=== PATIENT | male | born 1955 | race Caucasian/White ===

== ENCOUNTER → 2019-02-21 | Outpatient (CLI) | payer BC ==
--- NOTE | 2019-02-21 18:00 | ECHOF ---
Referral Reason:R60.0 Localized edema MEASUREMENTS -------- HEIGHT: 175.3 cm WEIGHT: 115.7 kg BP: 134/75 RVIDd: 3.7 cm (< 3.3) IVSd: 1.2 cm (0.6 - 1.1) LVIDd: 4.9 cm (3.9 - 5.3) LVPWd: 1.1 cm (0.6 - 1.1) IVSs: 1.7 cm LVIDs: 3.5 cm LVPWs: 1.7 cm LA Diam: 4.0 cm (2.7 - 3.8) LAESV Index (A-L): 26.73 ml/m Ao Diam: 3.5 cm (2.0 - 3.7) AV Cusp: 2.2 cm (1.5 - 2.6) MV EXCURSION: 17.701 mm (> 18.000) MV EF SLOPE: 62 mm/s (70 - 150) EPSS: 0.8 cm MV E Gilbert: 0.86 m/s MV DecT: 259 ms MV A Gilbert: 1.01 m/s MV E/A Ratio: 0.85 RAP: 5.00 mmHg RVSP: 36.08 mmHg TAPSE: 15.18 mm FINDINGS -------- Sinus rhythm. This was a technically adequate study. The left ventricular size is normal. There is borderline concentric left ventricular hypertrophy. Overall left ventricular systolic function is normal with, an EF between 55 - 60 %. The right ventricle is mild to moderately enlarged. Normal LA size by volume 22+/-6 ml/m2. The right atrial size is normal. Interatrial and interventricular septum intact. The aortic valve is trileaflet, and appears structurally normal. No aortic stenosis or regurgitation. The mitral valve is normal. There is trace mitral regurgitation. The tricuspid valve appears structurally normal. Mild tricuspid regurgitation present. There is m ild pulmonary hypertension. Trace/mild (physiologic) pulmonic regurgitation. The aortic root size is normal. IVC Not well visulized. There is no pericardial effusion. CONCLUSIONS -------- 1. Sinus rhythm. 2. This was a technically adequate study. 3. The left ventricular size is normal. 4. There is borderline concentric left ventricular hypertrophy. 5. Overall left ventricular systolic function is normal with, an EF between 55 - 60 %. 6. 7. The right ventricle is mild to moderately enlarged. 8. Normal LA size by volume 22+/-6 ml/m2. 9. The aortic valve is trileaflet, and appears structurally normal. No aortic stenosis or regurgitati on. 10. There is trace mitral regurgitation. 11. Mild tricuspid regurgitation present. 12. There is mild pulmonary hypertension. 13. Trace/mild (physiologic) pulmonic regurgitation. 14. The aortic root size is normal. 15. IVC Not well visulized. 16. There is no pericardial effusion. REMOTE MEDICAL CODER: Esperanza Barajas RDCS
== END | disposition home or self-care (01) ==
LOC: RADECHMAIN 16:19
PROVIDERS: ATTEND Family Medicine
DX: I07.1 Rheumatic tricuspid insufficiency (principal); I27.20 Pulmonary hypertension, unspecified
CPT/HCPCS: 93306

== ENCOUNTER → 2019-11-18 | Outpatient (CLI) | payer BC ==
--- NOTE | 2019-11-19 04:27 | US ---
EXAMINATION TYPE: US venous doppler duplex UE RT DATE OF EXAM: 11/18/2019 COMPARISON: NONE CLINICAL HISTORY: 64-year-old male R22.31 Swelling of Rt upper limb. Right arm swelling and redness. TECHNIQUE: Grayscale, color doppler, spectral doppler imaging performed of the deep veins of the upp er extremities. SIDE PERFORMED: Right FINDINGS: There is normal flow, compressibility and vascular waveforms. Right Arm: Negative for DVT IMPRESSION: No sonographic evidence for DVT within the right upper extremity.
== END | disposition home or self-care (01) ==
LOC: RADUSWWP 16:26
PROVIDERS: ATTEND Family Medicine
DX: R22.31 Localized swelling, mass and lump, right upper limb (principal)

== ENCOUNTER → 2021-08-05 | Outpatient (CLI) | payer BC, MEDICARE ==
--- NOTE | 2021-08-06 04:34 | MR ---
EXAMINATION TYPE: MR lumbar spine wo con DATE OF EXAM: 08/05/2021 COMPARISON: None HISTORY: LBP, radiates down right leg x 3 months. Multiplanar multiecho imaging of the lumbar spine without contrast. Lumbar vertebrae have normal alignment. There is degenerative disc space narrowing at L5-S1. There is a small posterior disc herniation at L5-S1. There is developmentally adequate spinal canal. No spina l stenosis. There is no lumbar paraspinal mass. There is some intermediate signal in the right-sided neural foramen at L5-S1. It is not clear if this is a lateral disc herniation or due to a mass. There is no compression fracture. There is no focal bone destruction. Sacroiliac joints are intact. IMPRESSION: There is a mass in the neural foramen of L5-S1 on the right side that could be a sequestered disc her niation or tumor mass. No focal bone destruction. There is small posterior central L5-S1 lumbar disc herniation.
== END | disposition home or self-care (01) ==
LOC: RADMRIMAIN 19:09
PROVIDERS: ATTEND Family Medicine
DX: M54.16 Radiculopathy, lumbar region (principal)
CPT/HCPCS: 72148

== ENCOUNTER → 2021-09-03 | Outpatient (CLI) | payer BC, MEDICARE ==
--- NOTE | 2021-09-03 10:20 | MR ---
EXAMINATION TYPE: MR shoulder RT wo con DATE OF EXAM: 09/03/2021 COMPARISON: None. HISTORY: Right shoulder pain since surgery in September 2020 TECHNIQUE: Multiplanar, multisequence imaging of the right shoulder is performed without contrast. FINDINGS: Rotator Cuff: Artifact from rotator cuff repair noted in the lateral aspect of the humeral head. Ther e is recurrent full-thickness retracted tear of the supraspinatus tendon to the level of the central acromion near the AC joint. The infraspinatus tendon remains intact. Subscapularis tendon is intact. Acromioclavicular Joint: Persistent severe narrowing and moderate to severe capsular hypertrophy with mild spurring. Distal acromion morphology unremarkable. Glenohumeral Joint: Moderate to severe narrowing superior glenohumeral joint with moderate joint effu stefany extending superiorly. High riding humeral head correlates with full-thickness rotator cuff tear. Labrum: The labrum appears grossly intact given limitation of non-arthrogram study. Biceps Tendon: The long head of biceps is in normal location within bicipital groove. There is abnorm al increased signal in the extracapsular portion. Intra-articular portion not well visualized but fel t intact. Bone marrow signal: Mild edematous change involving the lateral aspect of the acromion just above the humeral head. Other: No additional significant abnormality is appreciated. IMPRESSION: 1. Recurrent full-thickness retracted tear of the supraspinatus tendon. High running humeral head con sistent with underlying instability noted. 2. Moderate to severe degenerative changes as detailed above. 3. Tendinopathy and tearing of fibers of the long head of biceps tendon noted.
== END | disposition home or self-care (01) ==
LOC: RADMRIMAIN 09:01
PROVIDERS: ATTEND Family Medicine
DX: M75.101 Unspecified rotator cuff tear or rupture of right shoulder, not specified as traumatic (principal); M62.81 Muscle weakness (generalized)

== ENCOUNTER → 2022-07-05 | Outpatient (CLI) | payer BC, MEDICARE ==
--- NOTE | 2022-07-06 07:20 | US ---
EXAMINATION TYPE: US thyroid st tissue head/neck DATE OF EXAM: 07/05/2022 COMPARISON: 05/03/2016 CLINICAL HISTORY: E04.2 NONTOXIC MULTINODULAR GOITER. Thyroid nodules GLAND SIZE: Right Lobe: 5.5 x 2.4 x 2.3 cm Overall Parenchyma: heterogenous Left Lobe: 5.0 x 2.1 x 1.7 cm Overall Parenchyma: heterogeneous Isthmus Thickness: 0.3 cm NODULES RIGHT: # of nodules measured on right: 3 1. 1.0 X .7 x 1.0 cm, upper Prior size: 1.0 x .7 x .8 cm TIRADS Score: 2 TIRADS Category 2: Not Suspicious Composition: Mixed cystic and solid (1 point). Echogenicity: Hyperechoic or isoechoic (1 point). Shape: Wider than tall (0 points). Margin: Smooth (0 points). Echogenic foci: None or large comet-tail artifacts (0 points) Recommendation: No FNA 2. 1.0 X 0.7 x 0.9 cm, mid Prior size: 0.9 x 0.7 x 0.6 cm TIRADS Score: 2 TIRADS Category 2: Not Suspicious Composition: Mixed cystic and solid (1 point). Echogenicity: Hyperechoic or isoechoic (1 point). Shape: Wider than tall (0 points). Margin: Smooth (0 points). Echogenic foci: None or large comet-tail artifacts (0 points) Recommendation: No FNA LEFT: # of nodules measured on left: 1 1. 1.1 X 0.7 x 1.1 cm, mid Prior size: 0.9 x 0.7 x 0.7 cm TIRADS Score: 3 TIRADS Category 3: Mildly Suspicious Composition: Mixed cystic and solid (1 point). Echogenicity: Hypoechoic (2 points). Shape: Wider than tall (0 points). Margin: Smooth (0 points). Echogenic foci: None or large comet-tail artifacts (0 points) Recommendation: If >2.5cm: FNA; If >1.5cm: Follow up at 1,3,5 years ISTHMUS: # of nodules measured in the isthmus: 0 Bilateral neck scanned, no evidence of lymphadenopathy. IMPRESSION: Bilateral thyroid nodules that do not meet criteria for follow-up or tissue sampling.
== END | disposition home or self-care (01) ==
LOC: RADUSWWP 15:32
PROVIDERS: ATTEND Family Medicine
DX: E04.2 Nontoxic multinodular goiter (principal)
CPT/HCPCS: 76536

== ENCOUNTER → 2024-11-14 | Outpatient (CLI) | payer MEDICARE ==
--- NOTE | 2024-11-14 14:07 | US ---
EXAMINATION TYPE: US thyroid st tissue head/neck DATE OF EXAM: 11/14/2024 COMPARISON: 07/05/2022 CLINICAL INDICATION: Male, 69 years old with history of E04.1 NONTOXIC SINGLE THYROID NODULE; TECHNIQUE: Grayscale and color Doppler imaging of the thyroid gland. FINDINGS: GLAND SIZE: Right Lobe: 5.7 x 2.7 x 1.8 cm Overall Parenchyma: heterogeneous Left Lobe: 5.1 x 2.4 x 1.8 cm Overall Parenchyma: heterogeneous Isthmus Thickness: 0.4 cm NODULES RIGHT: # of nodules measured on right: 3 1. 1.1 X 0.8 x 1.0 cm, upper mid, Prior size: 0.9 x 1.0 x 0.7 cm TIRADS Score: 4 TIRADS Category 4: Composition: Solid or almost completely solid (2 points). Echogenicity: Hypoechoic (2 points). Shape: Wider than tall (0 points). Margin: Smooth (0 points). Echogenic foci: None or large comet-tail artifacts (0 points) Recommendation: If >1.5cm: FNA; If >1cm: Follow up at 1,2, 3,5 years 2. 1.4 X 1.0 x 1.3 cm, lower mid, Prior size: 0.9 x 1.0 x 0.7 cm TIRADS Score: 2 TIRADS Category 2: Composition: Mixed cystic and solid (1 point). Echogenicity: Hyperechoic or isoechoic (1 point). Shape: Wider than tall (0 points). Margin: Smooth (0 points). Echogenic foci: None or large comet-tail artifacts (0 points) Recommendation: No FNA 3. 1.0 X 0.8 x 1.1 cm, mid mid, Prior size: Not seen on prior TIRADS Score: 0 TIRADS Category 1: Benign Composition: Spongiform (0 points). Recommendation: No FNA LEFT: # of nodules measured on left: 1 1. 1.3 X 1.0 x 0.8 cm, lower lateral, mixed cystic and solid, very hypoechoic nodule, which is tall er than wide, with ill-defined margins, without echogenic foci. Prior size: 1.1 x 0.7 x 1.1 cm TIRADS Score: 5 TIRADS Category 4: Composition: Solid or almost completely solid (2 points). Echogenicity: Very hypoechoic (3 points). Shape: Wider than tall (0 points). Margin: Smooth (0 points). Echogenic foci: None or large comet-tail artifacts (0 points) Recommendation: If >1.5cm: FNA; If >1cm: Follow up at 1,2, 3,5 years ISTHMUS: # of nodules measured in the isthmus: 0 Bilateral neck scanned, no evidence of lymphadenopathy. IMPRESSION: Bilateral thyroid nodules that meet criteria for follow-up Highest TI-RADS level nodule reported: 2017 ACR TI-RADS LEVEL: TI-RADS 4 - Moderately Suspicious: Follow if > 1 cm, FNA if > 1.5 cm TI-RADS assessment score and recommendation for follow-up based on appropriate scoring and treatment protocols. TR1 Benign No FNA TR2 Not suspicious No FNA TR3: If nodule size is ? 2.5 cm, FNA is recommended. If nodule size is ? 1.5 cm, follow-up imaging at 1, 3, and 5 years is recommended. TR4: If nodule size is ? 1.5 cm, FNA is recommended. If nodule size is ? 1.0 cm, follow-up imaging at 1, 2, 3, and 5 years is recommended. TR5: If nodule size is ? 1.0 cm, FNA is recommended. If nodule size is ? 0.5 cm, annual follow-up for up to 5 years is recommended. TR 1 thyroid nodules have a 0.3 % risk of malignancy. TR 2 thyroid nodules have a 1.5 % risk of malignancy. TR 3 thyroid nodules have a 4.8 % risk of malignancy. TR 4 thyroid nodules have a 9.1 % risk of malignancy. TR 5 thyroid nodules have a 35 % risk of malignancy. [email or web address] [facility], , 11/14/2024 2:04 PM
== END | disposition home or self-care (01) ==
LOC: RADUSWWP 13:29
PROVIDERS: ATTEND Family Medicine
DX: E04.2 Nontoxic multinodular goiter (principal)
CPT/HCPCS: 76536

== ENCOUNTER 2024-12-03 12:35 | Inpatient (IN) | payer MEDICARE ==
[2024-12-03 15:14] LABS: Glucose,Whole Blood 141 mg/dL (70-110)
[2024-12-03] MEDS: IV FLUID CONTINUATION 1,000 ML IV ONE (16:55)
[2024-12-03] MEDS: fentaNYL (PF) 50 MCG/1 ML VIAL IVP ONE (17:23)
[2024-12-03] MEDS: LIDOCAINE 1% INJ 10MG/ML (20 ML MDV) SQ ONE (17:23)
[2024-12-03] MEDS: MIDAZOLAM 2 MG/2 ML VIAL IVP ONE (17:24)
[2024-12-03] MEDS: VERAPAMIL 2.5 MG/ML 4 ML VIAL INTRAARTER ONE (17:24)
[2024-12-03] MEDS: SODIUM CHLORIDE 0.9% 1,000 ML IV ONE (17:25)
[2024-12-03] MEDS: HEPARIN SODIUM,PORCINE 10,000 UNIT in SODIUM CHLORIDE 0.9% 1,000 ML IRRIGATION ONE (17:26)
[2024-12-03] MEDS: HEPARIN SODIUM,PORCINE (1 ML) 2,500 UNIT in SODIUM CHLORIDE 0.9% 250 ML IRRIGATION ONE (17:26)
[2024-12-03] MEDS: HEPARIN SODIUM 1,000 UN/ML (10ML VL) IVP ONE ×3 (17:35→18:44)
[2024-12-03] MEDS: PRASUGREL 10 MG TAB PO ONE (17:43)
[2024-12-03] MEDS: IOPAMIDOL-300 100ML BTL INJ ONE ×2 (18:01→18:32)
[2024-12-03] MEDS ORDERED: ATROPINE SULFATE 0.1 MG/ML 10ML SYRINGE IV PRN (18:51)
[2024-12-03] MEDS ORDERED: NITROGLYCERIN SL TABS 0.4 MG TAB SUBLINGUAL PRN (18:51)
[2024-12-03] MEDS ORDERED: RX INFO: IV CONTRAST WAS GIVEN 1 EACH MISC MISCELLANE PRN (18:51)
[2024-12-03] MEDS ORDERED: MAG HYDROX/AL HYDROX/SIMETH 30 ML CUP PO PRN (18:51)
--- NOTE | 2024-12-03 19:03 | P.CARDCATH ---
Date of Procedure: 12/03/24 Description of Procedure: Cardiac Catheterization: The patient is a 69-year-old male with a history of hypertension hyperlipidemia who presented to [facility] with symptoms of chest discomfort going on for the last few days and no significant EKG changes but with significant elevation of his high-sensitivity troponin. Recommendations were made regarding cardiac catheterization, the risks and the complications were discussed with the patient who is in full understanding and agreement. Procedure Description: Patient was brought to manager lab in fasting semi-sedated state after receiving Fentanyl and Benadryl achieiving moderate conscious sedated state. Using Xylocaine Anesthesia and modified Seldinger technique, a 6-St Lucian sheath was introduced in the right radial artery . Subsequently, selective coronary angiography was performed using a 5-St Lucian 3.5 bend Lin catheter. Multiple views of the coronary artery including hemiaxial views were obtained. The 5 [place] Lucian pigtail catheter was used to cross the aortic valve and LVEDP was calculated. PCI: After removing the catheters a 6 [place] Lucian CLS 3.5 guiding catheter was introduced into the system and after cannulating the left main a super cross microcatheter with a 0.014 whisper J-wire was advanced to the distal LAD, the wire was exchanged to a 0.014 BMW J-wire and subsequently the microcatheter was removed. Subsequently at 2.5 x 12 mm trek balloon was advanced and multiple inflation at 8 sylvain was done. After removing the balloon a Trips n Salsa eye IVUS catheter was introduced and imaging was performed and revealed diffusely diseased mid LAD. The proximal vessel measured 4.5 mm in diameter. There was moderate calcification in the midsegment. After removing the IVUS a 4.0 x 28 mm Xience mehdi point stent was deployed at 16 sylvain. Subsequently a 2.5 x 38 mm Xience mehdi point was deployed in the mid segment at 16 sylvain and after removing the balloon a 3.0 x 18 mm Xience mehdi point stent was deployed in the segment between the first 2 stents. After removing the balloon repeat IVUS imaging was performed and subsequently a 3.0 x 20 mm NC trek balloon was advanced and inflation in the distal stents were performed and after that a 3.5 x 20 mm NC trek balloon was advanced and inflation in the mid segments of the stents were done and at the end of 4.5 x 15 mm NC trek balloon was advanced and inflations in the proximal stent were done. After the last inflation the wire was removed and images were obtained and revealed stable successful stenting. Following that, catheter and sheath were removed. Hemostasis was obtained with deployment of vascular band . There was no immediate complication. Patient was returned to room in stable condition. Of note, the patient received a total of 8500 units of intravenous heparin as well as intra-arterial verapamil. He received an oral loading dose of prasugrel, his ACT was monitored. He had no EKG changes or chest discomfort with the inflations. Findings: Fluoroscopy: Calcification of the LAD was noted. Left main: This is a short size vessel, bifurcating into LAD and left circumflex, left main has no obstructive disease LAD: This vessel is totally occluded proximally with no antegrade flow Left circumflex: This is a large nondominant vessel giving rise to a large obtuse marginal branch the 2nd and 3rd obtuse marginal branch are small in caliber. The proximal left circumflex has 10 to 20% plaque as well has intimal disease in the OM with no high-grade stenosis. RCA: This is a large dominant vessel, tortuous in the midsegment. It has a 60 to 70% stenosis in the midsegment with intimal disease distally and no high- grade stenosis. The PDA is large in caliber and has no evidence of high-grade stenosis. There is collaterals through the septal position clerk toward the proximal LAD. Left Ventriculogram: Not performed Hemodynamics: There was no gradient across aortic valve, LVEDP was 24-28 mmHg Conclusion: 1. Acutely occluded proximal LAD 2. Moderate significant disease in the mid RCA 3. Mild disease in the left circumflex 4. Elevated LVEDP 5. Successful stenting of the proximal and mid LAD with reduction of stenosis from 100% to less than 5% with diffuse pattern of disease in the mid LAD after the acute occlusion with KSENIA-3 flow at the end of procedure with IVUS imaging. The patient second diagonal branch was small in caliber and diffusely diseased. Recommendations: The patient will continue on aspirin and prasugrel without any interruption for at least 1 year in addition to aggressive coronary risks modification, attempting to maintain LDL below 70 mg/dL. Depending on his progress the decision will be made at a later time to evaluate the right coronary artery territory to see if intervention is needed. The findings and the recommendations were discussed with the patient and the family and they were in full understanding and agreement. Duration of sedation is 71 minutes.
[2024-12-03 19:22] LABS: Glucose,Whole Blood 103 mg/dL (70-110)
[2024-12-03] MEDS: SODIUM CHLORIDE 0.9% 1,000 ML in EMPTY BAG 1 BAG IV SCH (20:31)
[2024-12-03] MEDS: METOPROLOL TARTRATE 12.5 MG TAB PO SCH (20:32)
[2024-12-03] MEDS: ATORVASTATIN 80 MG TAB PO SCH (20:32)
[2024-12-03] MEDS: ZOLPIDEM 5 MG TAB PO PRN (23:20)
[2024-12-04 06:44] LABS: African American GFR (CKD) >90 (>60 ml/min/1.73 sqM); Anion Gap 8 mmol/L; Blood Urea Nitrogen 17 mg/dL (9-20); Calcium 8.3 mg/dL (8.4-10.2); Carbon Dioxide 23 mmol/L (22-30); Chloride 107 mmol/L (98-107); Glucose 125 mg/dL (74-99); Non-African American GFR(CKD) >90 (>60 ml/min/1.73 sqM); Sodium 138 mmol/L (137-145)
[2024-12-04 07:10] LABS: Potassium 2.7 mmol/L (3.5-5.1)
[2024-12-04] MEDS ORDERED: Potassium Replacement Protocol 1 EACH MISC MISCELLANE PRN ×2 (07:21→18:27)
--- NOTE | 2024-12-04 07:34 | P.PN ---
Subjective Progress Note Date: 12/04/24 The patient was seen and evaluated this morning. He is asymptomatic. He is hemodynamically stable beside the pressure being on the low side with some reading below 90 mmHg systolic. I am going to decrease the dose of Aldactone to 12.5 mg p.o. daily and continue the rest of the current medical regimen i ncluding dual antiplatelet therapy along with high intensity statin along with beta-veronika and also ARB. The echo is pending. The physical examination is remarkable for regular rhythm with clear breathing sounds bilaterally and no edema was noted in the lower extremities Assessment Acute non-ST elevation myocardial infarction CAD status post PCI of the LAD Electrolytes imbalance with hypokalemia Multiple comorbid conditions Plan Continue the current medical regimen Decrease the dose of Aldactone Waiting for the echocardiogram Possible discharge out of the ICU in the next 12 to 24 hours Objective - Vital Signs Vital signs: Vital Signs Temp 98.4 F 12/04/24 04:00 Pulse 68 12/04/24 07:00 Resp 10 L 12/04/24 07:00 BP 78/53 12/04/24 07:00 Pulse Ox 96 12/04/24 07:00 FiO2 Intake & Output 12/03/24 12/04/24 12/04/24 18:59 06:59 18:59 Intake Total 500 900 540 Output Total 800 0 Balance 500 100 540 Weight 99.79 kg 93.7 kg Intake: IV 500 900 Sodium Chloride 0.9% 1, 900 000 ml In Empty Bag 1 bag @ 1 ML/KG/HR 99.79 mls/ hr IV .Q10H2M [facility] Rx#: [id number] Oral 540 Output: Urine 800 0 Other: Voiding Method Urinal - Labs CBC & Chem 7: 12/04/24 05:34 Labs: Abnormal Lab Results - Last 24 Hours (Table) 12/03/24 12/04/24 Range/Units 15:02 05:34 Potassium 2.7 L* (3.5-5.1) mmol/L Creatinine 0.60 L (0.66-1.25) mg/dL Glucose 125 H (74-99) mg/dL POC Glucose (mg/dL) 141 H (70-110) mg/dL Calcium 8.3 L (8.4-10.2) mg/dL
[2024-12-04] MEDS ORDERED: SPIRONOLACTONE 25 MG TAB PO SCH (09:00)
[2024-12-04] MEDS: DAPAGLIFLOZIN PROPANEDIOL 10 MG TABLET PO SCH (09:05)
[2024-12-04] MEDS: POTASSIUM CHLORIDE ER 20 MEQ TAB.ER PO SCH ×2 (09:05→18:33)
[2024-12-04] MEDS: ASPIRIN 81 MG PO SCH (09:05)
[2024-12-04] MEDS: CHOLECALCIFEROL 25 MCG (1000 IU) TABLET PO SCH (09:05)
[2024-12-04] MEDS: PRASUGREL 10 MG TAB PO SCH (09:06)
--- NOTE | 2024-12-04 11:30 | CA ---
Transthoracic Echo Report Name: David Mar Age: 69 Gender: M : 1955 Exam Date: 12/04/2024 07:48 Exam Location: [place] [facility] Ht (in): 70 Wt (lb): 219 Ordering Physician: Diandra Richardson MD ([id number]) Attending/Referring Phys: Used Equipment Sales Representative Esperanza Barajas RDCS Procedure CPT: Indications: GA Cardiac Hx: Technical Quality: Fair Contrast 1: Total Dose (mL): Contrast 2: Total Dose (mL): MEASUREMENTS (Male / Female) Normal Values 2D ECHO LV Diastolic Diameter PLAX 4.6 cm 4.2 - 5.9 / 3.9 - 5.3 cm LV Systolic Diameter PLAX 3.9 cm IVS Diastolic Thickness 1.5 cm 0.6 - 1.0 / 0.6 - 0.9 cm LVPW Diastolic Thickness 1.3 cm 0.6 - 1.0 / 0.6 - 0.9 cm LV Relative Wall Thickness 0.6 RV Internal Dim ED PLAX 3.7 cm LA Systolic Diameter LX 3.9 cm 3.0 - 4.0 / 2.7 - 3.8 cm LV Diastolic Volume MOD BP 145.1 cm??? 67 - 155 / 56 - 104 cm??? LV Systolic Volume MOD BP 96.9 cm??? 22 - 58 / 19 - 49 cm??? LV Ejection Fraction MOD BP 33.2 % >= 55 % LV Cardiac Index MOD BP 1848.4 cm???/min???m??? LV Diastolic Volume MOD 4C 128.6 cm??? LV Systolic Volume MOD 4C 79.4 cm??? LV Ejection Fraction MOD 4C 38.2 % LV Cardiac Index MOD 4C 1883.1 cm???/min???m??? LV Diastolic Length 4C 8.8 cm LV Systolic Length 4C 7.7 cm LV Diastolic Volume MOD 2C 132.1 cm??? LV Systolic Volume MOD 2C 84.4 cm??? LV Ejection Fraction MOD 2C 36.1 % LV Cardiac Index MOD 2C 1827.0 cm???/min???m??? LV Diastolic Length 2C 8.7 cm LV Systolic Length 2C 7.4 cm M-MODE Aortic Root Diameter MM 3.6 cm AV Cusp Separation MM 2.2 cm DOPPLER AV Peak Velocity 148.6 cm/s AV Peak Gradient 8.8 mmHg AV Mean Velocity 111.3 cm/s AV Mean Gradient 5.2 mmHg AV Velocity Time Integral 28.3 cm LVOT Peak Velocity 121.7 cm/s LVOT Peak Gradient 5.9 mmHg LVOT Velocity Time Integral 23.6 cm MR Peak Velocity 364.3 cm/s MR Peak Gradient 53.1 mmHg Mitral E Point Velocity 113.4 cm/s Mitral A Point Velocity 129.8 cm/s Mitral E to A Ratio 0.9 MV Deceleration Time 168.5 ms MV E' Velocity 6.0 cm/s Mitral E to MV E' Ratio 19.0 TR Peak Velocity 289.0 cm/s TR Peak Gradient 33.4 mmHg Right Ventricular Systolic Press 43.4 mmHg FINDINGS Left Ventricle Left ventricular ejection fraction is estimated at 35-40 %. Left ventricular cavity size normal. Moderately increased septal wall thickness. Severely increased left ventricular systolic volume. Moderately decreased left ventricular ejection fraction. Global left ventricular hypokinesis. Right Ventricle Mild right ventricular dilatation. Mild pulmonary hypertension. Right Atrium Normal right atrial size. No right atrial thrombus or mass seen. Left Atrium Normal left atrial size. No left atrial thrombus or mass present. Mitral Valve Structurally normal mitral valve. No mitral stenosis. Moderate mitral regurgitation. Aortic Valve Trileaflet aortic valve. No aortic valve stenosis or regurgitation. Tricuspid Valve Structurally normal tricuspid valve. Mild tricuspid regurgitation. Pulmonic Valve Structurally normal pulmonic valve. No pulmonic regurgitation. Pericardium No pericardial effusion. Aorta Normal size aortic root and proximal ascending aorta. CONCLUSIONS Moderate to severe LV systolic dysfunction with an ejection fraction of 35% Moderate mitral regurgitation Mild tricuspid regurgitation Mild pulmonary hypertension Previewed by: Dr. Kane Parker MD (Electronically Signed) Final Date: 04 December 2024 11:29
[2024-12-04] MEDS: SPIRONOLACTONE 25 MG TAB PO SCH (11:42)
[2024-12-04] MEDS: LOSARTAN 25 MG TAB PO SCH (11:42)
[2024-12-04] MEDS: SODIUM CHLORIDE 0.9% 1,000 ML IV SCH (11:56)
[2024-12-04 13:36] VITALS: BMI 29.6
[2024-12-04] MEDS ORDERED: Magnesium Replacement Protocol 1 EACH MISC MISCELLANE PRN (14:27)
--- NOTE | 2024-12-04 14:48 | XR ---
EXAMINATION TYPE: XR chest 1V portable DATE OF EXAM: 12/04/2024 COMPARISON: NONE CLINICAL INDICATION: Male, 69 years old with history of chf; TECHNIQUE: Single frontal view of the chest is obtained. FINDINGS: There is marked elevation right hemidiaphragm. Cardiac silhouette appears enlarged but there is no pulmonary vascular congestion or edema. No airspace consolidation There is no pleural effusion or pneumothorax. IMPRESSION: Prominent cardiac silhouette but no overt CHF. No acute cardiopulmonary disease. [facility], , 12/04/2024 2:45 PM
[2024-12-04 18:58] LABS: Anion Gap 8.0 mmol/L; Carbon Dioxide 24.0 mmol/L (22-30); Chloride 106.0 mmol/L (98-107); Magnesium 1.9 mg/dL (1.6-2.3); Potassium 3.1 mmol/L (3.5-5.1); Sodium 138.0 mmol/L (137-145)
[2024-12-04] MEDS: POTASSIUM CHLORIDE 10 MEQ in WATER FOR INJECTION 1 100ML.BAG IVPB SCH (19:05)
[2024-12-04] MEDS: MAGNESIUM SULFATE-D5W PMX 1 GM in DEXTROSE/WATER 1 100ML.BAG IVPB ONE (21:13)
--- NOTE | 2024-12-05 00:35 | HP ---
HISTORY AND PHYSICAL CHIEF COMPLAINT: Chest pain. HISTORY OF THE PRESENT ILLNESS: This 69-year-old gentleman with a past medical history of multiple medical problems was admitted with chest pain to [facility]. Troponins elevated up to 225. The patient was transferred to [facility] and Cardiology did perform a cardiac catheterization showed acutely occluded proximal LAD and moderate stenosis in the mid RCA and stenting of the proximal and mid LAD was done. The patient is monitored in ICU. The patient had episode of hypotension. Cardiology is following the patient closely. A 2D echo with Doppler showed onmilpsg-ih-ulcpen LV dysfunction, ejection fraction 35% and moderate mitral regurgitation also. There is no history of any fever, rigors, or chills at this time. PAST MEDICAL HISTORY: History of GERD, hypertension, history of myocardial infarction, history of CAD stent. Rest of the history from chart was also reviewed. HOME MEDICATIONS: Reviewed, include Mounjaro. Dose and rest of medications reviewed. ALLERGIES: None. FAMILY HISTORY: History of diabetes runs in the family. SOCIAL HISTORY: No history of smoking. REVIEW OF SYSTEMS: Fourteen-point review of systems is negative except as mentioned earlier. PHYSICAL EXAMINATION: VITAL SIGNS: Pulse 63, blood pressure 90/67, and respirations 18. HEENT: Conjunctivae normal. NECK: No jugular venous distention. CARDIOVASCULAR: S1, S2. RESPIRATIONS: Breath sounds diminished at the bases. A few scattered rhonchi. No crackles. ABDOMEN: Soft, nontender. LEGS: No edema. NERVOUS SYSTEM: Nonfocal. LABORATORY DATA: Potassium 2.2. ASSESSMENT: 1. Acute fir-CN-oikqezb elevation myocardial infarction, status post cardiac catheterization and stenting of the LAD. 2. Moderate disease of the mid RCA. 3. Ijuronlk-bj-cheulx LV dysfunction, ejection fraction 35%. 4. Moderate mitral regurgitation. 5. Cardiogenic shock possibly. 6. Hypokalemia. 7. History of gastroesophageal reflux disease. 8. History of hypertension. 9. History of degenerative joint disease. RECOMMENDATIONS: This 69-year-old gentleman presented with multiple complex medical issues. We will monitor the patient closely. Continue current medication. Monitor the blood pressure closely. IV fluid boluses being given. I recommend baseline chest x-ray, repeat labs, supplement potassium. Closely monitor. Prognosis extremely guarded because of multiple complex medical issues, and further recommendations to follow. Monitor blood sugars also closely. MMODL / IJN: [id number] /
[2024-12-05 04:25] LABS: Basophils # (A) 0.06 10*3/uL (0.00-0.10); Basophils % (A) 0.3 %; Eosinophils # (A) 0.02 10*3/uL (0.04-0.35); Eosinophils % (A) 0.1 %; HCT 39.9 % (39.6-50.0); HGB 12.9 g/dL (13.0-17.0); Lymphocytes # (A) 1.97 10*3/uL (0.90-5.00); Lymphocytes % (A) 10.4 %; MCH 30.6 pg (27.0-32.0); MCHC 32.3 g/dL (32.0-37.0); MCV 94.5 fL (80.0-97.0); Monocytes # (A) 2.02 10*3/uL (0.20-1.00); Monocytes % (A) 10.7 %; Neutrophils # (A) 14.72 10*3/uL (1.80-7.70); Neutrophils % (A) 78.0 %; Platelet Count 271 10*3/uL (140-440); RBC 4.22 10*6/uL (4.40-5.60); RDW 15.3 % (11.5-14.5); WBC 18.89 10*3/uL (4.50-10.00)
[2024-12-05 04:37] LABS: ALT 65 U/L (4-49); AST 239 U/L (17-59); African American GFR (CKD) >90 (>60 ml/min/1.73 sqM); Albumin 3.2 g/dL (3.5-5.0); Alkaline Phosphatase 89 U/L (38-126); Anion Gap 8 mmol/L; Blood Urea Nitrogen 23 mg/dL (9-20); Calcium 8.6 mg/dL (8.4-10.2); Carbon Dioxide 22 mmol/L (22-30); Chloride 107 mmol/L (98-107); Glucose 121 mg/dL (74-99); Magnesium 2.1 mg/dL (1.6-2.3); Non-African American GFR(CKD) >90 (>60 ml/min/1.73 sqM); Potassium 3.7 mmol/L (3.5-5.1); Sodium 137 mmol/L (137-145); Total Protein 5.5 g/dL (6.3-8.2)
[2024-12-05 05:46] LABS: Potassium 3.2 mmol/L (3.5-5.1)
[2024-12-05] MEDS ORDERED: Phosphorus Replacement Protoco 1 EACH MISC MISCELLANE PRN (06:59)
[2024-12-05] MEDS ORDERED: POTAS-SOD-PHOS 280-160-250 MG 1 EACH PACKET PO ONE (06:59)
[2024-12-05] MEDS ORDERED: Potassium Replacement Protocol 1 EACH MISC MISCELLANE PRN (07:42)
[2024-12-05] MEDS: POTASSIUM CHLORIDE 10 MEQ in WATER FOR INJECTION 1 100ML.BAG IVPB SCH (08:38)
[2024-12-05 09:32] LABS: Cholesterol 98.00 mg/dL (0.00-200.00); HDL Cholesterol 48.10 mg/dL (40.00-60.00); LDL Cholesterol,Calculated 37.3 mg/dL (0.0-131.0); Triglycerides 63.10 mg/dL (0.00-149.00); VLDL Calculation 12.62 mg/dL (5.00-40.00)
[2024-12-05] MEDS: POTASSIUM PHOSPHATE 10 MMOL in SODIUM CHLORIDE 0.9% 250 ML IV SCH (12:53)
[2024-12-05 13:08] LABS: Bilirubin,Urine Negative (Negative); Blood,Urine Negative (Negative); Color,Urine Yellow; Glucose,Urine (UA) 4+ (Negative); Ketones,Urine Trace (Negative); Leukocyte Esterase,Urine Negative (Negative); Nitrite,Urine Negative (Negative); PH, Urine 6.0 (5.0-8.0); Protein,Urine Trace (Negative); Specific Gravity,Urine 1.034 (1.001-1.035); Urobilinogen,Urine <2.0 mg/dL (<2.0)
[2024-12-05 13:30] LABS: Barbiturate Screen,Urine Not Detected (NotDetected); Benzodiazepines Screen,Urine Not Detected (NotDetected); Opiate Screen,Urine Not Detected (NotDetected); Oxycodone Screen, Urine Not Detected (NotDetected); Phencyclidine Screen,Urine Not Detected (NotDetected); Tricyclic Antidepressant,Urine Not Detected (NotDetected); Urn Cannabinoid Scrn Not Detected (NotDetected)
--- NOTE | 2024-12-05 13:45 | P.PN ---
Subjective Progress Note Date: 12/05/24 He presented to [facility] with NSTEMI. He was transferred to [facility] and underwent PCI of LAD, he still has moderate stenosis 60-70% RCA. The patient was seen and evaluated in the ICU. He is asymptomatic. He is hemodynamically stable beside the pressure being on the low side with some reading below 90 mmHg systolic. I am going to decrease the dose of Aldactone to 12.5 mg p.o. daily and continue the rest of the current medical regimen including dual antiplatelet therapy along with high intensity statin along with beta-micky and also ARB. The echo showed EF 35-40%, moderated mitral regurgitation. The physical examination is remarkable for regular rhythm with clear breathing sounds bilaterally and no edema was noted in the lower extremities 12/05/2024 He has been feeling better. No chest pain or pressure. No shortness of breath. No dizziness or lightheadedness. WBC 18.8, Hgb 12.9, K 3.2, creat 0.78. PHYSICAL EXAMINATION: This is a 69-year-old male in no apparent distress at the time of my examination. HEENT: Head is atraumatic, normocephalic. Pupils are equal, round. Sclerae anicteric. Conjunctivae are clear. Mucous membranes of the mouth are moist. Neck is supple. There is no jugular venous distention. No carotid bruit is heard. CHEST EXAMINATION: Lungs are clear to auscultation. No chest wall tenderness is noted on palpation or with deep breathing. HEART EXAMINATION: Heart regular rate and rhythm. S1, S2 heard. No murmurs, gallops or rub. ABDOMEN: Soft, nontender. Bowel sounds are heard. EXTREMITIES: 2+ peripheral pulses with no evidence of peripheral edema and no calf tenderness noted. NEUROLOGIC EXAMINATION: Patient is awake, alert and oriented x3. Assessment Acute non-ST elevation myocardial infarction CAD status post PCI of the LAD Electrolytes imbalance with hypokalemia Complete heart block, resolved Hypertension Cardiomyopathy, EF 35-40% Plan Continue the current medical regimen. No Beta Micky due to brief complete heart block. If no heart block through this afternoon, ok to downgrade to 3S. Continue DAPT LDL goal <70 Monitor overnight, possible DC home tomorrow if stable. I am dictating on behalf of Dr. Ashok Magdaleno's history/physical and assessment/plan. Objective - Vital Signs Vital signs: Vital Signs Temp 98.2 F 12/05/24 08:00 Pulse 89 12/05/24 13:00 Resp 22 12/05/24 13:00 BP 102/66 12/05/24 13:00 Pulse Ox 96 12/05/24 04:00 FiO2 Intake & Output 12/04/24 12/05/24 12/05/24 18:59 06:59 18:59 Intake Total 1340 800 550 Output Total 450 200 300 Balance 890 600 250 Weight 93.7 kg 93 kg Intake: IV 200 800 0.9 NACL bolus 200 Magnesium Sulfate-D5w Pmx 100 1 gm In Dextrose/Water 1 100ml.bag @ 100 mls/hr IVPB ONCE ONE Rx#: [id number] Potassium Chloride 10 meq 600 In Water For Injection 1 100ml.bag @ 100 mls/hr IVPB Q1HR [facility] Rx#: [id number] potassium 100 Intake, IV Titration 450 Amount Potassium Chloride 10 meq 200 In Water For Injection 1 100ml.bag @ 100 mls/hr IVPB Q1HR [facility] Rx#: [id number] Potassium Phosphate 10 250 mmol In Sodium Chloride 0 .9% 250 ml @ 125 mls/hr IV Q2H [facility] Rx#:[id number] Oral 1140 100 Output: Urine 450 200 300 Other: Voiding Method Urinal Urinal Toilet # Voids 1 # Bowel Movements 1 1 - Labs CBC & Chem 7: 12/05/24 02:55 12/05/24 05:19 Labs: Abnormal Lab Results - Last 24 Hours (Table) 12/04/24 12/04/24 12/05/24 Range/Units 14:23 18:22 02:51 WBC (4.50-10.00) 10*3/uL RBC (4.40-5.60) 10*6/uL Hgb (13.0-17.0) g/dL Immature Gran # (0.00-0.04) 10*3/uL Neutrophils # (1.80-7.70) 10*3/uL Monocytes # (0.20-1.00) 10*3/uL Eosinophils # (0.04-0.35) 10*3/uL Potassium 2.9 L 3.1 L (3.5-5.1) mmol/L BUN 23 H (9-20) mg/dL Glucose 121 H (74-99) mg/dL Phosphorus (2.5-4.5) mg/dL AST 239 H (17-59) U/L ALT 65 H (4-49) U/L Total Protein 5.5 L (6.3-8.2) g/dL Albumin 3.2 L (3.5-5.0) g/dL Urine Protein (Negative) Urine Glucose (UA) (Negative) Urine Ketones (Negative) 12/05/24 12/05/24 12/05/24 Range/Units 02:55 05:19 13:00 WBC 18.89 H (4.50-10.00) 10*3/uL RBC 4.22 L (4.40-5.60) 10*6/uL Hgb 12.9 L (13.0-17.0) g/dL Immature Gran # 0.10 H (0.00-0.04) 10*3/uL Neutrophils # 14.72 H (1.80-7.70) 10*3/uL Monocytes # 2.02 H (0.20-1.00) 10*3/uL Eosinophils # 0.02 L (0.04-0.35) 10*3/uL Potassium 3.2 L (3.5-5.1) mmol/L BUN (9-20) mg/dL Glucose (74-99) mg/dL Phosphorus 2.4 L (2.5-4.5) mg/dL AST (17-59) U/L ALT (4-49) U/L Total Protein (6.3-8.2) g/dL Albumin (3.5-5.0) g/dL Urine Protein Trace H (Negative) Urine Glucose (UA) 4+ H (Negative) Urine Ketones Trace H (Negative)
[2024-12-05] MEDS: POTASSIUM CHLORIDE ER 20 MEQ TAB.ER PO SCH (21:20)
--- NOTE | 2024-12-05 22:12 | P.CONS ---
History of Present Illness - Reason for Consult Consult date: 12/05/24 Leukocytosis Requesting physician: Christian Mcgowan - Chief Complaint Chest pain x 1 day - History of Present Illness Patient is a 69-year-old male past medical history significant for hypertension PA reflux osteoarthritis presented to the hospital with acute non- ST elevated PA in this patient was status post PCI of the LAD subsequently has been admitted to the ICU patient on presentation to the hospital was afebrile and no fever has been recorded subsequently patient was not tachycardic hypotensive or hypoxic no need for supplemental oxygen patient noticed to have elevated white count of 18.89 on a blood draw this morning with a left shift he did have normal creatinine pressure was slightly low liver isms mildly elevated urine has been negative urine drug screen negative patient did have a chest x- ray which shows cardiomegaly and no acute cardiopulmonary disease process infectious he was consulted because of elevated white count and concern for possible sepsis patient denies having any headache or URI symptoms patient denies having any chest pain or shortness of breath or cough no nausea vomiting no abdominal pain no diarrhea constipation no urinary symptoms Review of Systems Positive point and negatives has been mentioned in the HPI, complete review of systems was performed and all other systems are negative Past Medical History Past Medical History: Chest Pain / Angina, GERD/Reflux, Hypertension, Myocardial Infarction (PA), Osteoarthritis (OA) Additional Past Medical History / Comment(s): Osteoarthritis (Low back and neck) Last Myocardial Infarction Date:: 12/03/2024 History of Any Multi-Drug Resistant Organisms: Other MDRO Past Surgical History: Adenoidectomy, Appendectomy, Heart Catheterization With Stent, Hernia Repair, Orthopedic Surgery, Tonsillectomy Additional Past Surgical History / Comment(s): Leon hip joint replacement, fx femur, gastric bypass at [facility] [place], twisted intestine surg x2 2007, 2011 hiatal hernia Past Anesthesia/Blood Transfusion Reactions: No Reported Reaction Date of Last Stent Placement:: 12/03/2024 Past Psychological History: Depression Additional Psychological History / Comment(s): Mild depression since his Smoking Status: Never smoker Past Alcohol Use History: Occasional Past Drug Use History: None Reported - Past Family History Father Family Medical History: Diabetes Mellitus Mother Family Medical History: Myocardial Infarction (PA) Medications and Allergies Home Medications Medication Instructions Recorded Confirmed Type Multivitamins, Thera [Multivitamin 1 tab PO DAILY 03/18/14 12/03/24 History (formulary)] Pantoprazole Sodium [Protonix] 40 mg PO DAILY 03/18/14 12/03/24 History Anastrozole [Arimidex] 1 mg PO MOWEFR 12/03/24 12/03/24 History Calcium Carbonate [Calcium] 600 mg PO DAILY 12/03/24 12/03/24 History Celecoxib 200 mg PO DAILY 12/03/24 12/03/24 History Cholecalciferol [Vitamin D3 (25 25 mcg PO DAILY 12/03/24 12/03/24 History Mcg = 1000 Iu)] Cyanocobalamin (Vitamin B-12) 1,000 mcg PO DAILY 12/03/24 12/03/24 History [Vitamin B-12] Dapagliflozin Propanediol [Farxiga] 1 tab PO DAILY 12/03/24 12/03/24 History Tirzepatide [Mounjaro] 7.5 mg SQ MO 12/03/24 12/03/24 History Vitamin A 2,400 mcg PO DAILY 12/03/24 12/03/24 History Aspirin 81 mg PO DAILY #60 tab 12/06/24 Rx Atorvastatin [Lipitor] 80 mg PO HS #60 tab 12/06/24 Rx Losartan [Cozaar] 25 mg PO DAILY #30 tab 12/06/24 Rx Nitroglycerin Sl Tabs [Nitrostat] 0.4 mg SUBLINGUAL Q5M PRN #25 tab 12/06/24 Rx Potassium Chloride ER [K-Dur 10] 10 meq PO DAILY #30 tab 12/06/24 Rx Prasugrel [Effient] 10 mg PO DAILY #60 tab 12/06/24 Rx Allergies Allergy/AdvReac Type Severity Reaction Status Date / Time No Known Allergies Allergy Verified 12/03/24 20:29 Physical Exam Vitals: Vital Signs Temp Pulse Resp BP Pulse Ox 12/05/24 13:00 89 22 102/66 12/05/24 12:00 60 22 93/49 12/05/24 11:00 61 16 86/74 12/05/24 10:00 63 16 91/61 12/05/24 09:00 65 20 95/63 12/05/24 08:00 98.2 F 71 19 85/66 12/05/24 07:00 52 L 22 94/66 12/05/24 06:00 51 L 35 H 103/69 12/05/24 05:00 63 56 H 87/69 12/05/24 04:00 98.5 F 61 22 93/59 96 12/05/24 03:00 53 L 17 100/70 12/05/24 02:00 60 38 H 101/66 12/05/24 01:00 62 17 101/68 12/05/24 00:00 98.8 F 60 35 H 97/67 98 12/04/24 23:01 60 37 H 95/57 100 12/04/24 23:00 61 34 H 95/57 99 12/04/24 22:00 57 L 33 H 90/63 98 12/04/24 21:00 57 L 25 H 86/44 95 12/04/24 20:00 98.6 F 57 L 30 H 90/59 95 12/04/24 19:00 57 L 20 90/61 96 12/04/24 18:00 57 L 16 91/59 97 12/04/24 17:00 71 16 95/58 96 12/04/24 16:00 98.3 F 70 18 97/67 96 12/04/24 15:00 70 14 82/47 95 12/04/24 14:00 67 20 80/50 96 Intake and Output 12/04/24 12/05/24 12/05/24 22:59 06:59 14:59 Intake Total 1000 400 550 Output Total 500 100 300 Balance 500 300 250 Intake: IV 400 400 Magnesium Sulfate-D5w Pmx 100 1 gm In Dextrose/Water 1 100ml.bag @ 100 mls/hr IVPB ONCE ONE Rx#: [id number] Potassium Chloride 10 meq 200 400 In Water For Injection 1 100ml.bag @ 100 mls/hr IVPB Q1HR [facility] Rx#: [id number] potassium 100 Intake, IV Titration 450 Amount Potassium Chloride 10 meq 200 In Water For Injection 1 100ml.bag @ 100 mls/hr IVPB Q1HR [facility] Rx#: [id number] Potassium Phosphate 10 250 mmol In Sodium Chloride 0 .9% 250 ml @ 125 mls/hr IV Q2H [facility] Rx#:[id number] Oral 600 100 Output: Urine 500 100 300 Other: Voiding Method Urinal Urinal Toilet # Bowel Movements 1 Weight 93 kg GENERAL DESCRIPTION: Elderly male lying in bed, no distress. No tachypnea or accessory muscle of respiration use. HEENT: Shows Pallor , no scleral icterus. Oral mucous membrane is dry. No pharyngeal erythema or thrush NECK: Trachea central, no thyromegaly. LUNGS: Unlabored breathing. Clear to auscultation anteriorly. No wheeze or crackle. HEART: S1, S2, regular rate and rhythm. No loud murmur ABDOMEN: Soft, no tenderness , guarding or rigidity, no organomegaly EXTREMITIES: No edema of feet. SKIN: No rash, no masses palpable. NEUROLOGICAL: The patient is awake, alert, oriented x3, mood and affect normal. Results CBC & Chem 7: 12/06/24 02:43 12/06/24 08:04 Labs: Abnormal Lab Results - Last 24 Hours (Table) 12/04/24 12/04/24 12/05/24 Range/Units 14:23 18:22 02:51 WBC (4.50-10.00) 10*3/uL RBC (4.40-5.60) 10*6/uL Hgb (13.0-17.0) g/dL Immature Gran # (0.00-0.04) 10*3/uL Neutrophils # (1.80-7.70) 10*3/uL Monocytes # (0.20-1.00) 10*3/uL Eosinophils # (0.04-0.35) 10*3/uL Potassium 2.9 L 3.1 L (3.5-5.1) mmol/L BUN 23 H (9-20) mg/dL Glucose 121 H (74-99) mg/dL Phosphorus (2.5-4.5) mg/dL AST 239 H (17-59) U/L ALT 65 H (4-49) U/L Total Protein 5.5 L (6.3-8.2) g/dL Albumin 3.2 L (3.5-5.0) g/dL Urine Protein (Negative) Urine Glucose (UA) (Negative) Urine Ketones (Negative) 12/05/24 12/05/24 12/05/24 Range/Units 02:55 05:19 13:00 WBC 18.89 H (4.50-10.00) 10*3/uL RBC 4.22 L (4.40-5.60) 10*6/uL Hgb 12.9 L (13.0-17.0) g/dL Immature Gran # 0.10 H (0.00-0.04) 10*3/uL Neutrophils # 14.72 H (1.80-7.70) 10*3/uL Monocytes # 2.02 H (0.20-1.00) 10*3/uL Eosinophils # 0.02 L (0.04-0.35) 10*3/uL Potassium 3.2 L (3.5-5.1) mmol/L BUN (9-20) mg/dL Glucose (74-99) mg/dL Phosphorus 2.4 L (2.5-4.5) mg/dL AST (17-59) U/L ALT (4-49) U/L Total Protein (6.3-8.2) g/dL Albumin (3.5-5.0) g/dL Urine Protein Trace H (Negative) Urine Glucose (UA) 4+ H (Negative) Urine Ketones Trace H (Negative) Assessment and Plan (1) Leukocytosis Status: Acute Code(s): D72.829 - ELEVATED WHITE BLOOD CELL COUNT, UNSPECIFIED SNOMED Code(s): 885573320 Plan: 1patient with a leukocytosis in this patient presented to the outside facility with non-ST elevated PA subsequently transferred to [facility] and the patient is status post cardiac cath and PCI to LAD in this patient with no fever and no localizing signs and symptoms of infection UA has been negative chest x- ray reported negative for acute infiltrate with a question of possible reactive. 2blood cultures obtained by admitting team will check a CRP and a procalcitonin with a.m. lab. 3for now we will monitor closely off antibiotic therapy as no clear focus of infection Family at the bedside question answered We will follow on clinical condition and cultures to further adjust medication if needed Thank you for this consultation we will follow the patient along with you Dictation was produced using [employer] dictation software. please excuse any grammatical, word or spelling errors. Time with Patient: Greater than 30
--- NOTE | 2024-12-06 01:09 | PN ---
PROGRESS NOTE DATE OF SERVICE: 12/05/2024 HISTORY: This is a 69-year-old gentleman, who was transferred from [facility] with acute efq-LD-mcjhzut-elevation myocardial infarction. Underwent cardiac catheterization and LAD stenting. The patient also had ostial disease. Also, the patient developed third-degree AV block, is being monitored closely. Cardiology is following the patient closely. The patient also has some high elevated blood count. Cultures have been noted. The patient had relative hypotension. PAST MEDICAL HISTORY: Reviewed. REVIEW OF SYSTEMS: A 14-point review is negative. CURRENT MEDICATIONS: Reviewed. PHYSICAL EXAMINATION: VITAL SIGNS: Pulse is 61, blood pressure 80/74, and respirations 16. HEENT: Conjunctivae normal. NECK: No jugular venous distention. CARDIOVASCULAR: S1, S2 muffled. RESPIRATION: Breath sounds diminished at the bases. A few scattered rhonchi. ABDOMEN: Soft. NERVOUS SYSTEM: No focal deficit. LABORATORY DATA: Potassium 3.2, phosphorus is 2.4, AST, ALT, elevated WBC 18.89. ASSESSMENT: 1. Acute ems-HE-ldkzrwx elevation myocardial infarction, status post cardiac arrest and stenting of the LAD. 2. Moderate disease of the RCA. 3. Akvlmmrw-vi-zoyocb LV dysfunction, ejection fraction of 35%. 4. Third-degree AV block. 5. Elevated WBC. 6. Moderate mitral regurgitation. 7. Cardiogenic shock, possibly. 8. Hypokalemia. 9. Severe gastroesophageal reflux disease. 10.Hypertension. 11.Severe degenerative joint disease. 12.Hypophosphatemia. RECOMMENDATIONS AND DISCUSSION: Continue current medications, symptomatic treatment. Otherwise at this time, I recommend to continue the cultures. There is no source of any infection per se at this time. We will continue to monitor cultures. Follow closely with Cardiology. Supplement potassium, phosphorus. Continue to monitor. I would also recommend Infectious Disease evaluation for elevated WBC. See orders for further details. Prognosis is guarded. MMODL / IJN: [id number] /
[2024-12-06 03:11] LABS: Basophils # (A) 0.03 10*3/uL (0.00-0.10); Basophils % (A) 0.2 %; Eosinophils # (A) 0.13 10*3/uL (0.04-0.35); Eosinophils % (A) 1.0 %; HCT 36.0 % (39.6-50.0); HGB 11.7 g/dL (13.0-17.0); Lymphocytes # (A) 1.82 10*3/uL (0.90-5.00); Lymphocytes % (A) 14.6 %; MCH 31.0 pg (27.0-32.0); MCHC 32.5 g/dL (32.0-37.0); MCV 95.2 fL (80.0-97.0); Monocytes # (A) 1.23 10*3/uL (0.20-1.00); Monocytes % (A) 9.9 %; Neutrophils # (A) 9.20 10*3/uL (1.80-7.70); Neutrophils % (A) 73.7 %; Platelet Count 231 10*3/uL (140-440); RBC 3.78 10*6/uL (4.40-5.60); RDW 15.2 % (11.5-14.5); WBC 12.48 10*3/uL (4.50-10.00)
[2024-12-06 03:34] LABS: ALT 44 U/L (4-49); AST 100 U/L (17-59); African American GFR (CKD) >90 (>60 ml/min/1.73 sqM); Albumin 2.6 g/dL (3.5-5.0); Alkaline Phosphatase 76 U/L (38-126); Anion Gap 7 mmol/L; Blood Urea Nitrogen 24 mg/dL (9-20); Calcium 8.2 mg/dL (8.4-10.2); Carbon Dioxide 23 mmol/L (22-30); Chloride 108 mmol/L (98-107); Glucose 97 mg/dL (74-99); Non-African American GFR(CKD) >90 (>60 ml/min/1.73 sqM); Potassium 3.5 mmol/L (3.5-5.1); Sodium 138 mmol/L (137-145); Total Protein 4.8 g/dL (6.3-8.2)
[2024-12-06] MEDS: POTASSIUM BICARBONATE/CIT AC 20 MEQ TABLET.EFF NG-TUBE SCH (04:47)
[2024-12-06] MEDS: PANTOPRAZOLE 40 MG TABLET PO SCH (06:38)
[2024-12-06] MEDS: POTASSIUM CHLORIDE ER 20 MEQ TAB.ER PO SCH (09:44)
[2024-12-06 12:12] VITALS: BP 99/65; PULSE 85; RESP 18; TEMP 98
--- NOTE | 2024-12-06 14:26 | P.PN ---
Subjective Progress Note Date: 12/06/24 He presented to [facility] with NSTEMI. He was transferred to [facility] and underwent PCI of LAD, he still has moderate stenosis 60-70% RCA. The patient was seen and evaluated in the ICU. He is asymptomatic. He is hemodynamically stable beside the pressure being on the low side with some reading below 90 mmHg systolic. I am going to decrease the dose of Aldactone to 12.5 mg p.o. daily and continue the rest of the current medical regimen including dual antiplatelet therapy along with high intensity statin along with beta-micky and also ARB. The echo showed EF 35-40%, moderated mitral regurgitation. The physical examination is remarkable for regular rhythm with clear breathing sounds bilaterally and no edema was noted in the lower extremities 12/05/2024 He has been feeling better. No chest pain or pressure. No shortness of breath. No dizziness or lightheadedness. WBC 18.8, Hgb 12.9, K 3.2, creat 0.78. 12/06/24 He is feeling well. No chest pain or shortness of breath. PHYSICAL EXAMINATION: This is a 69-year-old male in no apparent distress at the time of my examination. HEENT: Head is atraumatic, normocephalic. Pupils are equal, round. Sclerae anicteric. Conjunctivae are clear. Mucous membranes of the mouth are moist. Neck is supple. There is no jugular venous distention. No carotid bruit is heard. CHEST EXAMINATION: Lungs are clear to auscultation. No chest wall tenderness is noted on palpation or with deep breathing. HEART EXAMINATION: Heart regular rate and rhythm. S1, S2 heard. No murmurs, gallops or rub. ABDOMEN: Soft, nontender. Bowel sounds are heard. EXTREMITIES: 2+ peripheral pulses with no evidence of peripheral edema and no calf tenderness noted. NEUROLOGIC EXAMINATION: Patient is awake, alert and oriented x3. Assessment Acute non-ST elevation myocardial infarction CAD status post PCI of the LAD Electrolytes imbalance with hypokalemia Complete heart block, resolved Hypertension Cardiomyopathy, EF 35-40% Plan Continue the current medical regimen. No Beta Micky due to brief complete heart block. Continue DAPT LDL goal <70 Consider outpatient event monitor. OK to discharge home from cardiology standpoint. Follow up in office in [address] Richardson. I am dictating on behalf of Dr. Ashok Magdaleno's history/physical and assessment/plan. Objective - Vital Signs Vital signs: Vital Signs Temp 98 F 12/06/24 12:00 Pulse 85 12/06/24 12:00 Resp 18 12/06/24 12:00 BP 99/65 12/06/24 12:00 Pulse Ox 97 12/06/24 12:00 FiO2 Intake & Output 12/05/24 12/06/24 12/06/24 18:59 06:59 18:59 Intake Total 1040 240 Output Total 900 300 300 Balance 140 -300 -60 Weight 92 kg Intake: Intake, IV Titration 700 Amount Potassium Chloride 10 meq 200 In Water For Injection 1 100ml.bag @ 100 mls/hr IVPB Q1HR [facility] Rx#: [id number] Potassium Phosphate 10 500 mmol In Sodium Chloride 0 .9% 250 ml @ 125 mls/hr IV Q2H [facility] Rx#:[id number] Oral 340 240 Output: Urine 900 300 300 Other: Voiding Method Urinal Urinal Toilet # Bowel Movements 1 1 1 - Labs CBC & Chem 7: 12/06/24 02:43 12/06/24 08:04 Labs: Abnormal Lab Results - Last 24 Hours (Table) 12/05/24 12/06/24 12/06/24 Range/Units 19:00 02:43 02:43 WBC 12.48 H (4.50-10.00) 10*3/uL RBC 3.78 L (4.40-5.60) 10*6/uL Hgb 11.7 L (13.0-17.0) g/dL Hct 36.0 L (39.6-50.0) % Immature Gran # 0.07 H (0.00-0.04) 10*3/uL Neutrophils # 9.20 H (1.80-7.70) 10*3/uL Monocytes # 1.23 H (0.20-1.00) 10*3/uL Potassium 3.4 L (3.5-5.1) mmol/L Chloride 108 H (98-107) mmol/L BUN 24 H (9-20) mg/dL Calcium 8.2 L (8.4-10.2) mg/dL AST 100 H (17-59) U/L C-Reactive Protein 8.6 H (<1.0) mg/dL Total Protein 4.8 L (6.3-8.2) g/dL Albumin 2.6 L (3.5-5.0) g/dL
--- NOTE | 2024-12-06 15:48 | P.PN ---
Subjective Progress Note Date: 12/06/24 Principal diagnosis: Reason for follow-up is leukocytosis Patient is a 69-year-old male past medical history significant for hypertension ID reflux osteoarthritis presented to the hospital with acute non- ST elevated ID in this patient was status post PCI of the LAD subsequently has been admitted to the ICU patient noticed to have elevated white count prompting this consultation. On today's evaluation that is 12/07/2023, patient did have a temperature of 98 F this morning and denies having any chills, patient is on room air and breathing comfortably no chest pain or cough, the patient did not have any nausea vomiting abdominal pain did have diarrhea which is chronic for him no acute worsening. Patient white count is down to 12.48 creatinine 0.68 procalcitonin 0.20 blood cultures pending Objective - Vital Signs Vital signs: Vital Signs Temp 98 F 12/06/24 12:00 Pulse 85 12/06/24 12:00 Resp 18 12/06/24 12:00 BP 99/65 12/06/24 12:00 Pulse Ox 97 12/06/24 12:00 FiO2 Intake & Output 12/05/24 12/06/24 12/06/24 18:59 06:59 18:59 Intake Total 1040 240 Output Total 900 300 300 Balance 140 -300 -60 Weight 92 kg Intake: Intake, IV Titration 700 Amount Potassium Chloride 10 meq 200 In Water For Injection 1 100ml.bag @ 100 mls/hr IVPB Q1HR [facility] Rx#: [id number] Potassium Phosphate 10 500 mmol In Sodium Chloride 0 .9% 250 ml @ 125 mls/hr IV Q2H [facility] Rx#:[id number] Oral 340 240 Output: Urine 900 300 300 Other: Voiding Method Urinal Urinal Toilet # Bowel Movements 1 1 1 - Exam GENERAL DESCRIPTION: An elderly male lying in bed in no distress RESPIRATORY SYSTEM: Unlabored breathing , decreased breath sounds at bases HEART: S1 S2 regular rate and rhythm , ABDOMEN: Soft , no tenderness EXTREMITIES: No edema feet - Labs CBC & Chem 7: 12/06/24 02:43 12/06/24 08:04 Labs: Abnormal Lab Results - Last 24 Hours (Table) 12/05/24 12/05/24 12/06/24 Range/Units 13:00 19:00 02:43 WBC 12.48 H (4.50-10.00) 10*3/uL RBC 3.78 L (4.40-5.60) 10*6/uL Hgb 11.7 L (13.0-17.0) g/dL Hct 36.0 L (39.6-50.0) % Immature Gran # 0.07 H (0.00-0.04) 10*3/uL Neutrophils # 9.20 H (1.80-7.70) 10*3/uL Monocytes # 1.23 H (0.20-1.00) 10*3/uL Potassium 3.4 L (3.5-5.1) mmol/L Chloride (98-107) mmol/L BUN (9-20) mg/dL Calcium (8.4-10.2) mg/dL AST (17-59) U/L C-Reactive Protein (<1.0) mg/dL Total Protein (6.3-8.2) g/dL Albumin (3.5-5.0) g/dL Urine Protein Trace H (Negative) Urine Glucose (UA) 4+ H (Negative) Urine Ketones Trace H (Negative) 12/06/24 Range/Units 02:43 WBC (4.50-10.00) 10*3/uL RBC (4.40-5.60) 10*6/uL Hgb (13.0-17.0) g/dL Hct (39.6-50.0) % Immature Gran # (0.00-0.04) 10*3/uL Neutrophils # (1.80-7.70) 10*3/uL Monocytes # (0.20-1.00) 10*3/uL Potassium (3.5-5.1) mmol/L Chloride 108 H (98-107) mmol/L BUN 24 H (9-20) mg/dL Calcium 8.2 L (8.4-10.2) mg/dL AST 100 H (17-59) U/L C-Reactive Protein 8.6 H (<1.0) mg/dL Total Protein 4.8 L (6.3-8.2) g/dL Albumin 2.6 L (3.5-5.0) g/dL Urine Protein (Negative) Urine Glucose (UA) (Negative) Urine Ketones (Negative) Assessment and Plan (1) Leukocytosis Status: Acute Code(s): D72.829 - ELEVATED WHITE BLOOD CELL COUNT, UNSPECIFIED SNOMED Code(s): 768170053 Plan: 1patient with a leukocytosis in this patient presented to the outside facility with non-ST elevated ID subsequently transferred to [facility] and the patient is status post cardiac cath and PCI to LAD in this patient with no fever and no localizing signs and symptoms of infection UA has been negative chest x- ray reported negative for acute infiltrate with a question of possible reactive. 2blood cultures obtained which are currently pending the patient did have normal procalcitonin 3white count is trending down without antibiotic therapy hence we will monitor closely off antibiotics multiple question concern answered Dictation was produced using [employer] dictation software. please excuse any grammatical, word or spelling errors. Time with Patient: Less than 30
--- NOTE | 2024-12-10 19:26 | P.DS ---
Providers Date of admission: 12/03/24 14:49 Attending physician: Christian Mcgowan Consults: 12/03/24 18:51 Consult Physician Routine Consulting Provider: [facility] Consult Reason/Comments: Post Interventional Patient Do you want consulting provider notified?: Already Contacted 12/05/24 12:28 Consult Physician Routine Consulting Provider: Soren Gómez Consult Reason/Comments: high wbc Do you want consulting provider notified?: Yes Primary care physician: Stated None Hospital Course: Final Diagnosis Acute non-ST elevation myocardial infarction CAD status post PCI of the LAD Hypokalemia, supplemented Leukocytosis, reactive and improving Complete heart block, resolved Hypertension Cardiomyopathy, EF 35-40% History of GERD DJD Discharge Disposition Patient stable for discharge home. He is on optimized medical therapy for the cardiomyopathy and coronary artery disease. He will continue dual antiplatelet therapy for 12 months. He is on high dose statin. He will follow up with Dr. Rolanda jameson in the office in 1 week and further recommendations regarding event monitor on discharge. Hospital Course This is a 69 year old male with medical history of GERD, hypertension, DJD, hypertension. Patient was at [facility] for chest pain. Underwent catheterization for nonstemi and had stenting of the LAD. There is also moderate disease of the RCA. Patient echocardiogram reveals moderate to severe LV dysfunction with EF 35%. Patient had elevated WBC which is likely reactive. Septic work up negative. ID evaluated the patient. WBC down to 12.48 and procalcitonin level <0.20. UA negative. He was monitored in the ICU. Was started on increased dose of atorvastatin, dual antiplatelet therapy with aspirin and effient. He has no complaints of chest pain or shortness of breath. He has been up ambulating. He will be discharged home. Review of Systems Constitutional: Denied any fatigue denied any fever. Cardio vascular: denied any chest pain, palpitations Gastrointestinal: denied any nausea, vomiting, diarrhea Pulmonary: Denied any shortness of breath cough Neurologic denied any new focal deficits All inpatient medications were reviewed and appropriate changes in these medications as dictated in the interval history and assessment and plan. Please see medication reconciliation for a list of current medications. Thank you for allowing us to participate in the care of this patient. The impression and plan of care has been dictated by Catrina Ruby, Nurse Practitioner as directed. Dr. Debbi MD I have performed a history and physical examination and medical decision making of this patient, discussed the same with the dictator, and agree with the dictators assessment and plan as written, documented as a scribe. Based on total visit time, I have performed more than 50% of this visit. Patient Condition at Discharge: Good Plan - Discharge Summary Discharge Rx Participant: No New Discharge Prescriptions: New Atorvastatin [Lipitor] 80 mg PO HS #60 tab Potassium Chloride ER [K-Dur 10] 10 meq PO DAILY #30 tab Aspirin 81 mg PO DAILY #60 tab Losartan [Cozaar] 25 mg PO DAILY #30 tab Prasugrel [Effient] 10 mg PO DAILY #60 tab Nitroglycerin Sl Tabs [Nitrostat] 0.4 mg SUBLINGUAL Q5M PRN #25 tab PRN Reason: Chest Pain Continue Pantoprazole Sodium [Protonix] 40 mg PO DAILY Multivitamins, Thera [Multivitamin (formulary)] 1 tab PO DAILY Celecoxib 200 mg PO DAILY Calcium Carbonate [Calcium] 600 mg PO DAILY Dapagliflozin Propanediol [Farxiga] 1 tab PO DAILY Cholecalciferol [Vitamin D3 (25 Mcg = 1000 Iu)] 25 mcg PO DAILY Vitamin A 2,400 mcg PO DAILY Cyanocobalamin (Vitamin B-12) [Vitamin B-12] 1,000 mcg PO DAILY Tirzepatide [Mounjaro] 7.5 mg SQ MO Anastrozole [Arimidex] 1 mg PO MOWEFR Discontinued Atorvastatin [Lipitor] 20 mg PO DAILY Losartan-Hctz 50-12.5 mg [Hyzaar 50-12.5] 1 tab PO DAILY tadalafiL 5 mg PO DAILY Discharge Medication List Multivitamins, Thera [Multivitamin (formulary)] 1 tab PO DAILY 03/18/14 [History] Pantoprazole Sodium [Protonix] 40 mg PO DAILY 03/18/14 [History] Anastrozole [Arimidex] 1 mg PO MOWEFR 12/03/24 [History] Calcium Carbonate [Calcium] 600 mg PO DAILY 12/03/24 [History] Celecoxib 200 mg PO DAILY 12/03/24 [History] Cholecalciferol [Vitamin D3 (25 Mcg = 1000 Iu)] 25 mcg PO DAILY 12/03/24 [History] Cyanocobalamin (Vitamin B-12) [Vitamin B-12] 1,000 mcg PO DAILY 12/03/24 [History] Dapagliflozin Propanediol [Farxiga] 1 tab PO DAILY 12/03/24 [History] Tirzepatide [Mounjaro] 7.5 mg SQ MO 12/03/24 [History] Vitamin A 2,400 mcg PO DAILY 12/03/24 [History] Aspirin 81 mg PO DAILY #60 tab 12/06/24 [Rx] Atorvastatin [Lipitor] 80 mg PO HS #60 tab 12/06/24 [Rx] Losartan [Cozaar] 25 mg PO DAILY #30 tab 12/06/24 [Rx] Nitroglycerin Sl Tabs [Nitrostat] 0.4 mg SUBLINGUAL Q5M PRN #25 tab 12/06/24 [Rx] Potassium Chloride ER [K-Dur 10] 10 meq PO DAILY #30 tab 12/06/24 [Rx] Prasugrel [Effient] 10 mg PO DAILY #60 tab 12/06/24 [Rx] Follow up Appointment(s)/Referral(s): Diandra Richardson MD [STAFF PHYSICIAN] - 1 Week Florentin Lenz MD [STAFF PHYSICIAN] - 1-2 Days Ambulatory/Diagnostic Orders: Basic Metabolic Panel [LAB.AMB] Location: None Selected Complete Blood Count w/diff [LAB.AMB] Time Frame: 3 Days, Location: None Selected Patient Instructions/Handouts: Coronary Artery Disease (DC), Coronary Intravascular Stent Placement (DC) Discharge/Stand Alone Forms: Work/School Release / Restrict Discharge Disposition: HOME SELF-CARE
--- NOTE | 2024-12-10 23:37 | CDI ---
Documentation Clarification Form Date: 12/10/2024 11:25:30 PM From: Venus Owen Phone: Admit Date: 12/03/2024 02:49:00 PM Patient Name: David Mar Visit Number: [id number] Discharge Date: 12/06/2024 03:43:00 PM ATTENTION: The Clinical Documentation Specialists (CDI) and [facility] Coding Staff appreciate your assistance in clarifying documentation. Please respond to the clarification below the line at the bottom and electronically sign. The CDI & [facility] Coding staff will review the response and follow-up if needed. Please note: Queries are made part of the Legal Health Record. If you have any questions, please contact the author of this message via ITS. Doctor/Provider: Christian Mcgowan Acute hah-MN-[id number] elevation myocardial infarction,status postcardiac arrest andstentingof the LAD is documented per 12/05 Progress Note. For each diagnosis, documentation must be clear to determine if the condition was present at the time of the patients inpatient admission or developed during the hospital stay. Additional clarification regarding the cardiac arrest is requested. History/Risk Factors: 69yo M, Acute NSTEMI, CAD, hypokalemia,reactive leukocytosis, complete heart block,HTN, CM EF 35-40%, GERD, DJD Clinical Indicators: Of note, the patient received a total of 8500 units of intravenous heparin as well as intra-arterial verapamil. He received an oral loading dose of prasugrel, his ACT was monitored. Hehad noEKGchanges orchest discomfort with the inflations. Fluoroscopy:Calcificationof the LAD was noted. Left main: This is a short size vessel,bifurcatinginto LAD and LCx, left mainhas noobstructivedisease. LAD: This vessel is totallyoccludedproximally with no antegrade flow. Left circumflex: This is a large nondominant vessel giving rise to a large obtuse marginal branch the 2nd and 3rd obtuse marginal branch are small in caliber. The proximal left circumflex has 10 to 20%plaqueas well has intimal disease in the OMwith nohigh-gradestenosis. RCA: This is a large dominant vessel,tortuousin the midsegment. It has a 60 to 70%stenosisin the midsegment with intimal disease distally andnohigh- gradestenosis. ThePDAis large in caliber and hasno evidence ofhigh-grade stenosis. There is collaterals through the septal lot porter toward the proximal LAD. Treatment: LHC w PCI, IVUS Definition of Present on Admission (POA): A diagnosis present at the time the order for admission to inpatient status was written. Please clarify if the cardiac arrest was POA [ ] Y = Yes, the condition was present at the time of the order for inpatient admission. [ ] N = No, the condition was not present at the time of the order for inpatient admission. [ ] Complication of LCH/PCI [ ] Not a complication of LCH/PCI [ ] W = Clinically undetermined if the condition was present at the time of the order for inpatient admission. [ ] Cardiac arrest was ruled out (Template Last Revised: August 2020) Cardiac arrest was ruled out MTDD
== END 2024-12-06 15:43 | disposition home or self-care (01) | DRG 321 ==
LOC: 3SCARD 14:49 → 2SICU 18:34
PROVIDERS: ADMIT Hospitalist; ATTEND Hospitalist
PROC: B240ZZ3 Ultrasonography of Single Coronary Artery, Intravascular (ICD-10-PCS; 2024-12-03)
PROC: 027034Z Dilation of Coronary Artery, One Artery with Drug-eluting Intraluminal Device, Percutaneous Approach (ICD-10-PCS; principal; 2024-12-03 17:00)
PROC: 4A023N7 Measurement of Cardiac Sampling and Pressure, Left Heart, Percutaneous Approach (ICD-10-PCS; 2024-12-03 17:00)
PROC: B2111ZZ Fluoroscopy of Multiple Coronary Arteries using Low Osmolar Contrast (ICD-10-PCS; 2024-12-03 17:00)
DX: I21.4 Non-ST elevation (NSTEMI) myocardial infarction (principal); R57.0 Cardiogenic shock; I44.2 Atrioventricular block, complete; I34.0 Nonrheumatic mitral (valve) insufficiency; I11.9 Hypertensive heart disease without heart failure; I42.9 Cardiomyopathy, unspecified; E83.39 Other disorders of phosphorus metabolism; D72.828 Other elevated white blood cell count; E78.5 Hyperlipidemia, unspecified; E87.6 Hypokalemia; K21.9 Gastro-esophageal reflux disease without esophagitis; M19.90 Unspecified osteoarthritis, unspecified site; I25.10 Atherosclerotic heart disease of native coronary artery without angina pectoris; I25.2 Old myocardial infarction; Z79.02 Long term (current) use of antithrombotics/antiplatelets; Z79.85 Long-term (current) use of injectable non-insulin antidiabetic drugs; Z79.82 Long term (current) use of aspirin; Z79.899 Other long term (current) drug therapy; Z82.49 Family history of ischemic heart disease and other diseases of the circulatory system; Z98.84 Bariatric surgery status; Z79.1 Long term (current) use of non-steroidal anti-inflammatories (NSAID); Z96.643 Presence of artificial hip joint, bilateral
CPT/HCPCS: 71045; 80048; 80051; 80053; 80061; 80306; 81003; 83735; 84100; 84132; 84145; 85025; 86140; 87040; 92978; 93306; 93458

== ENCOUNTER → 2024-12-30 | Day surgery (SDC) | payer MEDICARE ==
[2024-12-25 13:49] VITALS: BMI 31.5
[~2024-12-30] MED LIST: ALPRAZolam 0.25 MG TAB PO PRN; ALPRAZolam 0.5 MG TAB PO PRN; ASPIRIN 81 MG PO SCH; ATORVASTATIN 80 MG TAB PO SCH; ATROPINE SULFATE 0.1 MG/ML 10ML SYRINGE IV PRN; CYANOCOBALAMIN 500 MCG TAB PO SCH; DAPAGLIFLOZIN PROPANEDIOL 10 MG TABLET PO SCH; LOSARTAN 25 MG TAB PO SCH; MAG HYDROX/AL HYDROX/SIMETH 30 ML CUP PO PRN; METOPROLOL TARTRATE 25 MG TAB PO SCH; NITROGLYCERIN SL TABS 0.4 MG TAB SUBLINGUAL PRN; PRASUGREL 10 MG TAB PO SCH; RX INFO: IV CONTRAST WAS GIVEN 1 EACH MISC MISCELLANE PRN; SODIUM CHLORIDE 0.9% 1,000 ML in EMPTY BAG 1 BAG IV SCH; ZOLPIDEM 5 MG TAB PO PRN
[2024-12-30] MEDS: EMPTY BAG 1 BAG with SODIUM CHLORIDE 0.9% 1,000 ML IV SCH (09:00)
[2024-12-30] MEDS: IV FLUID CONTINUATION 1,000 ML IV ONE (09:00)
[2024-12-30 09:18] LABS: Glucose,Whole Blood 103 mg/dL (70-110)
[2024-12-30 09:30] VITALS: TEMP 98
[2024-12-30] MEDS: ASPIRIN 325 MG TAB PO ONE (09:32)
[2024-12-30] MEDS: PRASUGREL 10 MG TAB PO STA (09:47)
[2024-12-30] MEDS: HEPARIN SODIUM,PORCINE (1 ML) 2,500 UNIT in SODIUM CHLORIDE 0.9% 250 ML IRRIGATION PRN (10:50)
[2024-12-30] MEDS: HEPARIN SODIUM,PORCINE 10,000 UNIT in SODIUM CHLORIDE 0.9% 1,000 ML IRRIGATION PRN (10:50)
[2024-12-30] MEDS: fentaNYL (PF) 50 MCG/1 ML VIAL IVP ONE (10:50)
[2024-12-30] MEDS: LIDOCAINE 1% INJ 10MG/ML (20 ML MDV) SQ ONE (10:53)
[2024-12-30] MEDS: VERAPAMIL SYRINGE (5 MG/10 ML) INTRAARTER ONE (10:56)
[2024-12-30] MEDS: HEPARIN SODIUM 1,000 UN/ML (10ML VL) IVP ONE (10:59)
[2024-12-30] MEDS: IOPAMIDOL-370 100ML BTL INJ ONE (11:29)
--- NOTE | 2024-12-30 12:01 | P.CARDCATH ---
Date of Procedure: 12/30/24 Description of Procedure: Cardiac Catheterization: The patient is a 69-year-old male with a history of CAD status post anterior wall myocardial earlier this month that was found at that time to have significant disease in the RCA. Recommendations were made regarding cardiac catheterization, the risks and the complications were discussed with the patient who is in full understanding and agreement. Procedure Description: Patient was brought to laboratory helper in fasting semi-sedated state after receiving Fentanyl and Benadryl achieiving moderate conscious sedated state. Using Xylocaine Anesthesia and modified Seldinger technique, a 6-Luxembourger sheath was introduced in the right radial artery . Subsequently, selective coronary angiography was performed using a 5-Luxembourger 3.5 bend left Lin and 6 Luxembourger 0.75 AL guiding catheter. Multiple views of the coronary artery including hemiaxial views were obtained. The left Lin catheter was used to cross the aortic valve and LVEDP was calculated. PCI: Using the 6 Luxembourger 0.75 AL guiding catheter and after cannulating the right coronary ostium a 0.014 BMW J-wire was positioned in the distal RCA subsequently a In[place]ows eye IVUS catheter was introduced and imaging was performed that revealed a distal lumen of 4.1 to 4.2 mm and proximally 4.5 to 5.0 mm in diameter. After removing the catheter a 4.0 x 23 mm Xience Skypoint stent was advanced and deployed at 16 sylvain, after removing the balloon repeat IVUS imaging was performed and revealed good apposition of the stent distally with mild under deployment proximally. At that point a 4.5 x 12 mm NC trek balloon was advanced and 1 inflation proximally at 12 sylvain was done. On IVUS the minimal lumen area was above 10 mm. Following that the wire was removed and images were obtained and revealed stable successful stenting. Following that, catheter and sheath were removed. Hemostasis was obtained with deployment of vascular band . There was no immediate complication. Patient was returned to room in stable condition. Of note, the patient received a total of 8000 units of intravenous heparin as well as intra-arterial verapamil. He was continued on prasugrel. His ACT was monitored. He had no chest discomfort but he had EKG changes that resolved at the end of the procedure. Findings: Left main: This is a short size vessel, bifurcating into LAD and left circumflex, left main has no obstructive disease LAD: This is a large size vessel, the stented proximal and mid areas are patent with no evidence of in-stent restenosis. It gives rise to a proximal diagonal branch that is diffusely disease, small in caliber with a area of stenosis up to 90%. The LAD tapers down in the distal third. Left circumflex: This is a nondominant vessel, giving rise to a large obtuse marginal branch that has a 20 to 30% plaque, the rest of the vessel has no high- grade stenosis RCA: This is a large dominant vessel bifurcating distally to PDA and PLV. The mid RCA has an 80 to 85% stenosis the mid distal segment has a 40% plaque with intimal disease distally. Left Ventriculogram: Not performed Hemodynamics: There was no gradient across the aortic valve, LVEDP was 24-28 mmHg Conclusion: 1. Patent stent of the LAD 2. Significant stenosis in the mid RCA 3. Mild disease of the obtuse marginal branch and distal RCA 4. Successful stenting of the mid RCA with reduction of stenosis from 85% to less than 5% with IVUS imaging and KSENIA-3 flow 5. Elevated LVEDP. Recommendations: The patient will continue on aspirin and prasugrel for 1 year without any interruption in addition to aggressive coronary risks modifications, maintaining LDL below 70 mg/dL. The findings and the recommendations were discussed with the patient and the family and they were in full understanding and agreement. Duration of sedation is 37 minutes.
[2024-12-30 16:19] VITALS: BP 118/88; PULSE 67; RESP 16
== END | disposition home or self-care (01) ==
LOC: CATHCVL 08:27
PROVIDERS: ATTEND Internal Medicine Interventional Cardiology
DX: I25.10 Atherosclerotic heart disease of native coronary artery without angina pectoris (principal); I25.5 Ischemic cardiomyopathy; I44.2 Atrioventricular block, complete; I10 Essential (primary) hypertension; E78.2 Mixed hyperlipidemia; E11.9 Type 2 diabetes mellitus without complications; Z79.82 Long term (current) use of aspirin; Z79.85 Long-term (current) use of injectable non-insulin antidiabetic drugs; Z79.899 Other long term (current) drug therapy
CPT/HCPCS: 92978; 93458; 99152; 99153; C9600; C1769 ×3; C1894; C1753; C1874; C1887; C1725; J1644 ×3; J2003; Q9967; J3010